=== PATIENT | female | born 1975 | race Caucasian/White ===

== ENCOUNTER 2019-08-31 02:30 | Emergency (ER) | payer MEDICAID ==
--- NOTE | 2019-08-31 02:56 | EDM.PDOC ---
ED HPI GENERAL MEDICAL PROBLEM - General Chief Complaint: Abdominal Pain Stated Complaint: ABDOMINAL PAIN/CHEST PAIN Time Seen by Provider: 08/31/19 02:40 Source of Information: Reports: Patient History Limitations: Reports: No Limitations - History of Present Illness INITIAL COMMENTS - FREE TEXT/NARRATIVE: 44-year-old female who reports that approximately 1:30 AM she developed a pain in her epigastrium that was a pressure and constricting type pain that did not seem to be made better or worse with palpation or movement she developed a constricting and tingling feeling in her chest and both her arms associated with this. It also seemed to go into her neck. She states she has had pain severed of this in the past because she "ate something that did not agree with her" and she has taken Prilosec and it seems to have abated very quickly after this. Tonight, the pain did not seem to go away and also issued with burning, tingling and tightness in her chest and both upper arms which was new and the abdominal discomfort lasted for a longer period of time. She reports that the discomfort and pain was a 10/10 initially and it has gotten much better since then and now is down to a 2/10 with no real pain in her abdomen anymore but just a tingling and funny feeling in her chest and arms. No nausea or vomiting. She has been eating and drinking per her norm. No dysuria or hematuria. She reports that she has been having normal bowel movements for her. There are no other associated signs or symptoms. There are no other modifying factors. 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 However she did not have a cardiac catheterization or angioplasty or stents associated with this.) Gastrointestinal History: Reports: GERD Endocrine/Metabolic History: Reports: Diabetes, Type II, Obesity/BMI 30+ - Past Surgical History GI Surgical History: Reports: Bariatric Procedure (Gastric bypass), Cholecystectomy Female Surgical History: Reports: Hysterectomy, Tubal Ligation Oncologic Surgical History: Reports: Lumpectomy (Right breast) Social & Family History - Tobacco Use Smoking Status *Q: Current Every Day Smoker - Alcohol Use Alcohol Use History: No - Living Situation & Occupation Social History Comment: She is here with her son. ED ROS GENERAL - Review of Systems Review Of Systems: See Below Constitutional: Reports: No Symptoms HEENT: Reports: No Symptoms Respiratory: Reports: Shortness of Breath ([place] somewhat short of breath with this episode but that has resolved now.) Cardiovascular: Reports: Chest Pain (As described above.). Denies: Lightheadedness, Syncope Endocrine: Reports: No Symptoms GI/Abdominal: Reports: Abdominal Pain : Reports: No Symptoms Musculoskeletal: Reports: Arm Pain (Bilateral upper arm tingling and burning) Skin: Reports: No Symptoms Neurological: Reports: No Symptoms Hematologic/Lymphatic: Reports: No Symptoms Immunologic: Reports: No Symptoms ED EXAM, GENERAL - Physical Exam Exam: See Below Exam Limited By: No Limitations General Appearance: Alert, WD/WN, Anxious, Mild Distress Eye Exam: Bilateral Eye: EOMI, Normal Inspection, PERRL Ears: Normal External Exam, Hearing Grossly Normal Ear Exam: Bilateral Ear: Auricle Normal Nose: Normal Inspection, Normal Mucosa, No Blood Throat/Mouth: Normal Inspection Head: Atraumatic, Normocephalic Neck: Normal Inspection, Supple, Non-Tender, Full Range of Motion Respiratory/Chest: No Respiratory Distress, Lungs Clear, Normal Breath Sounds, No Accessory Muscle Use, Chest Non-Tender Cardiovascular: Normal Peripheral Pulses, Regular Rate, Rhythm, No JVD, No Rub Peripheral Pulses: 2+: Radial (L), Radial (R) GI/Abdominal: Normal Bowel Sounds, Soft, No Organomegaly, No Mass, Tender (His epigastrium and this somewhat reproduces the discomfort that she was having in her abdomen.). No: Rigid, Rebound (Female) Exam: Products of Conception Back Exam: Normal Inspection. No: CVA Tenderness (R), CVA Tenderness (L) Extremities: Normal Inspection, Normal Range of Motion, Non-Tender, No Pedal Edema, Normal Capillary Refill Neurological: Alert, Oriented, CN II-XII Intact, Normal Cognition, Normal Gait, No Motor/Sensory Deficits Skin Exam: Warm, Dry, Intact, Normal Color, No Rash EKG INTERPRETATION EKG Date: 08/31/19 Time: 03:03 Rhythm: NSR Rate (Beats/Min): 95 [place]: Normal P-Wave: Present QRS: Normal ST-T: Normal QT: Normal Comparison: NA - No Prior EKG Course - Vital Signs Last Recorded V/S: Last Vital Signs Temp 36.6 C 08/31/19 02:30 Pulse 101 H 08/31/19 02:30 Resp 14 08/31/19 02:30 BP 112/64 08/31/19 02:30 Pulse Ox 96 08/31/19 02:30 - Orders/Labs/Meds Orders: Active Orders 24 hr Category Date Time Status Cardiac Monitoring [RC] .As Directed Care 08/31/19 03:00 Active EKG Documentation Completion [RC] ASDIRECTED Care 08/31/19 02:59 Active Chest 1V Frontal [CR] Stat Exams 08/31/19 02:58 Ordered Sodium Chloride 0.9% [Saline Flush] Med 08/31/19 02:58 Active 10 ml FLUSH ASDIRECTED PRN Peripheral IV Insertion Adult [OM.PC] Routine Oth 08/31/19 02:58 Ordered EKG 12 Lead [EK] Routine Ther 08/31/19 02:58 Ordered Medication Orders Sodium Chloride (Saline Flush) 10 ml FLUSH ASDIRECTED PRN PRN Reason: Keep Vein Open Labs: Laboratory Tests 08/31/19 08/31/19 08/31/19 Range/Units 03:12 03:12 03:12 WBC 6.2 (4.5-12.0) X10-3/uL RBC 4.95 (3.23-5.20) x10(6)uL Hgb 14.7 (11.5-15.5) g/dL Hct 44.6 (30.0-51.3) % MCV 90.2 (80-96) fL MCH 29.7 (27.7-33.6) pg MCHC 32.9 (32.2-35.4) g/dL RDW 12.3 (11.5-15.5) % Plt Count 206 (125-369) X10(3)uL MPV 9.9 (7.4-10.4) fL Neut % (Auto) 60.0 (46-82) % Lymph % (Auto) 33.5 (13-37) % [place] % (Auto) 4.4 (4-12) % Eos % (Auto) 2 (1.0-5.0) % Baso % (Auto) 1 (0-2) % Neut # (Auto) 3.7 (1.6-8.3) # Lymph # (Auto) 2.1 (0.6-5.0) # [place] # (Auto) 0.3 (0.0-1.3) # Eos # (Auto) 0.1 (0.0-0.8) # Baso # (Auto) 0.0 (0.0-0.2) # D-Dimer, Quantitative 0.42 (0.0-0.59) mg/LFEU Sodium 141 (135-145) mmol/L Potassium 4.3 (3.5-5.3) mmol/L Chloride 105 (100-110) mmol/L Carbon Dioxide 28 (21-32) mmol/L BUN 11 (7-18) mg/dL Creatinine 0.7 (0.55-1.02) mg/dL Est Cr Clr Drug Dosing TNP Estimated GFR (MDRD) > 60 (>60) BUN/Creatinine Ratio 15.7 (9-20) Glucose 305 H (80-116) mg/dL Calcium 8.2 L (8.6-10.2) mg/dL Total Bilirubin 0.5 (0.1-1.3) mg/dL AST 256 H* (5-25) IU/L ALT 92 H (12-36) U/L Alkaline Phosphatase 134 H (56-112) IU/L Troponin I (<0.017-0.056) ng/mL Total Protein 5.8 L (6.0-8.0) g/dL Albumin 2.9 L (3.5-5.2) g/dL Globulin 2.9 g/dL Albumin/Globulin Ratio 1.0 Lipase (73-393) U/L 08/31/19 Range/Units 03:12 WBC (4.5-12.0) X10-3/uL RBC (3.23-5.20) x10(6)uL Hgb (11.5-15.5) g/dL Hct (30.0-51.3) % MCV (80-96) fL MCH (27.7-33.6) pg MCHC (32.2-35.4) g/dL RDW (11.5-15.5) % Plt Count (125-369) X10(3)uL MPV (7.4-10.4) fL Neut % (Auto) (46-82) % Lymph % (Auto) (13-37) % [place] % (Auto) (4-12) % Eos % (Auto) (1.0-5.0) % Baso % (Auto) (0-2) % Neut # (Auto) (1.6-8.3) # Lymph # (Auto) (0.6-5.0) # [place] # (Auto) (0.0-1.3) # Eos # (Auto) (0.0-0.8) # Baso # (Auto) (0.0-0.2) # D-Dimer, Quantitative (0.0-0.59) mg/LFEU Sodium (135-145) mmol/L Potassium (3.5-5.3) mmol/L Chloride (100-110) mmol/L Carbon Dioxide (21-32) mmol/L BUN (7-18) mg/dL Creatinine (0.55-1.02) mg/dL Est Cr Clr Drug Dosing Estimated GFR (MDRD) (>60) BUN/Creatinine Ratio (9-20) Glucose (80-116) mg/dL Calcium (8.6-10.2) mg/dL Total Bilirubin (0.1-1.3) mg/dL AST (5-25) IU/L ALT (12-36) U/L Alkaline Phosphatase (56-112) IU/L Troponin I < 0.017 L (<0.017-0.056) ng/mL Total Protein (6.0-8.0) g/dL Albumin (3.5-5.2) g/dL Globulin g/dL Albumin/Globulin Ratio Lipase 145 (73-393) U/L Meds: Medications Generic Name Dose Route Start Last Admin Trade Name Holly PRN Reason Stop Dose Admin Sodium Chloride 10 ml 08/31/19 02:58 Saline Flush FLUSH ASDIRECTED PRN Keep Vein Open Discontinued Medications Generic Name Dose Route Start Last Admin Trade Name Fretracie PRN Reason Stop Dose Admin Aspirin 324 mg 08/31/19 03:00 08/31/19 03:18 Aspirin PO 08/31/19 03:01 324 mg ONETIME ONE Administration - Re-Assessments/Exams Free Text/Narrative Re-Assessment/Exam: 08/31/19 04:00: The patient's EKG was completely normal. Her blood tests did show elevation in her AST and ALT unclear etiology. Her d-dimer was normal and a troponin was negative. Her pain is completely resolved including the tingling and burning in her chest. I am unsure why she had the discomfort but I think it might be related to her LFT elevation. It could also be a reflux-type problem or a marginal ulcer. It does not appear to be anything related to her heart, however, I did recommend to the patient that we keep her around for a couple of hours and repeat her troponin. She respectfully declines this and wishes to go home at this point. She will need to follow-up with her primary provider she will need additional outpatient testing in regard to her elevated LFTs and these episodes of abdominal and chest pain. Precautions and reasons for return to the emergency department were discussed with the patient and with her son prior to the patient's discharge. Departure - Departure Time of Disposition: 04:15 Disposition: Home, Self-Care 01 Condition: Good Clinical Impression: Abdominal pain of unknown etiology, Elevated LFTs Chest pain Qualifiers: Chest pain type: unspecified Qualified Code(s): R07.9 - Chest pain, unspecified - Discharge Information Instructions: Nonspecific Chest Pain, [id number], Abdominal Pain, Adult, Easy -to-Read Forms: ED Department Discharge Additional Instructions: Your blood tests were all normal except for your function tests which were somewhat elevated. Your EKG was normal. As we discussed, this could be something related to your liver or your major bile duct will need to follow-up with your primary provider as you may need further testing or referral to a specialist. Although unlikely, this could still be something related to your heart. Again, follow-up with your primary provider in regard to this. Rest. Drink plenty of fluids. You need to continue to take your Prilosec. Back to the emergency department for worsening pain, trouble breathing, unrelenting vomiting with fever or any other concerning sign or symptom. Sepsis Event Note - Focused Exam Vital Signs: Vital Signs Temp Pulse Resp BP Pulse Ox 08/31/19 02:30 36.6 C 101 H 14 112/64 96 Date Exam was Performed: 08/31/19 Time Exam was Performed: 04:03 - My Orders Last 24 Hours: My Active Orders 08/31/19 02:58 Chest 1V Frontal [CR] Stat Sodium Chloride 0.9% [Saline Flush] 10 ml FLUSH ASDIRECTED PRN Peripheral IV Insertion Adult [OM.PC] Routine EKG 12 Lead [EK] Routine 08/31/19 02:59 EKG Documentation Completion [RC] ASDIRECTED 08/31/19 03:00 Cardiac Monitoring [RC] .As Directed - Assessment/Plan Last 24 Hours: My Active Orders 08/31/19 02:58 Chest 1V Frontal [CR] Stat Sodium Chloride 0.9% [Saline Flush] 10 ml FLUSH ASDIRECTED PRN Peripheral IV Insertion Adult [OM.PC] Routine EKG 12 Lead [EK] Routine 08/31/19 02:59 EKG Documentation Completion [RC] ASDIRECTED 08/31/19 03:00 Cardiac Monitoring [RC] .As Directed
[2019-08-31] MEDS ORDERED: Sodium Chloride 0.9% 10 ML Syringe FLUSH PRN (02:58)
[2019-08-31] MEDS ORDERED: Aspirin 81 MG Tab.Chew PO ONE (03:00)
== END 2019-08-31 04:30 | disposition home or self-care (01) ==
LOC: FB.ED 02:30
DX: R10.13 Epigastric pain (principal); R07.9 Chest pain, unspecified; R94.5 Abnormal results of liver function studies; I25.2 Old myocardial infarction; E11.9 Type 2 diabetes mellitus without complications; E66.9 Obesity, unspecified; F17.200 Nicotine dependence, unspecified, uncomplicated; Z88.8 Allergy status to other drugs, medicaments and biological substances; Z88.5 Allergy status to narcotic agent; Z68.24 Body mass index [BMI] 24.0-24.9, adult
CPT/HCPCS: 36415; 80053; 83690; 84484; 85025; 85379; 93005; 99284; A9270